=== PATIENT | male | born 1970 | race Caucasian/White ===

== ENCOUNTER 2016-06-17 20:19 | Emergency (ER) | payer OTHER ==
[~2016-06-17] VITALS: Ht 170.2 cm; Wt 78.0 kg
[2016-06-17 20:50] VITALS: BP 109/72
--- NOTE | 2016-06-17 21:37 | ED GENERAL ADULT ---
History of Present Illness General Chief Complaint: General Adult Stated Complaint: PER PT "I WANT TO BE CHECKED FOR THE FLU" Source: patient Exam Limitations: no limitations Vital Signs & Intake/Output Vital Signs & Intake/Output Vital Signs Date Time Temp Pulse Resp B/P Pulse O2 O2 Flow FiO2 Ox Delivery Rate 06/17 2049 98.0 92 18 109/72 97 Room Air Triage Note: FLU LIKE SYMPTOMS FEVER CHILLS BODY ACHES REQUESTING FLU MEDS Triage Nurses Notes Reviewed? yes Onset: Gradual Duration: hour(s): (5) Timing: remote history Injury Environment: home Severity: moderate No Modifying Factors: none HPI: Patient is a 45-year-old male presenting to the emergency Department chief complaint of body aches, frontal headache and fever up to 101 started this afternoon. He called his primary care physician who told him to come to the emergency department for evaluation to make sure he doesn't have the flu. Patient reports that he took Tylenol and Motrin today which seemed to have helped. Denies any nausea or vomiting. No abdominal pain. Denies sick contacts or recent travel. (SHERLY SILVER) Past History Travel History Traveled to [place] past 21 day No Medical History Any Pertinent Medical History? see below for history Surgical History Surgical History: non-contributory Family History Hx Contributory? No (SHERLY SILVER) Review of Systems Review of Systems Constitutional: Reports: fever. Comments Review of systems: See HPI, All other systems negative. Constitutional, no weight loss HEENT: No visual changes no sore throat no congestion Cardiovascular: No chest pain ,palpitation , orthopnea or ankle swelling Skin, no jaundice no rashes Respiratory: No dyspnea cough sputum or hemoptysis GI: No nausea no vomiting : No dysuria No hematuria Muscle skeletal: no back pain, no neck pain, Neurologic: No numbness no confusion Psych: No stress anxiety or depression,. Heme/endocrine: No bruising no bleeding no polyuria or polydipsia Immunology: No splenectomy or history of AIDS (SHERYL SILVER) Physical Exam Physical Exam General Appearance: well developed/nourished, no apparent distress, alert, awake , comfortable Comments: Well-developed well-nourished person in no acute distress HEENT: extraocular motion intact, no nystagmus. Pupils equally round and reactive to light and accommodation. Nose is atraumatic. External auditory canal and Tympanic membranes clear. Pharynx is mildly erythematous, no exudate, clearing secretions bilaterally. No tonsillar enlargement. No swelling or edema. Neck: Supple, no lymphadenopathy, normal range of motion without pain or tenderness Cardiovascular: Regular rate and rhythms no murmurs rubs or gallops, normal JVP Respiratory: Chest nontender. No respiratory distress.breath sounds clear to auscultation bilaterally Neuro: Alert oriented x3 Skin: No appreciable rash on exposed skin, skin is warm and dry. Psych: Mood and affect is normal, memory and judgment is normal. Core Measures ACS in differential dx? No CVA/TIA Diagnosis: No Severe Sepsis Present: No Septic Shock Present: No (SHERLY SILVER) Progress Differential Diagnoses I considered the following diagnoses in my evaluation of the patient: Viral syndrome, strep, upper respiratory infection, influenza Plan of Care: Orders Procedure Date/time Status RAPID VIRAL INFLUENZA A 06/17 2041 Complete Microbiology 06/17 2099 NASOPHARYN: Influenza Virus A & B Rapid Smear - COMP Initial ED EKG: none Comments: Negative influenza swab. Likely other viral process. Patient in no acute distress. Symptoms actually went with motion and Tylenol and fluids. PCP follow-up next week. (SHERLY SILVER) Departure Departure Time of Disposition: 2142 Disposition: HOME OR SELF CARE Condition: Stable Clinical Impression Primary Impression: Viral syndrome Referrals: AMANDA CANO MD (PCP/Family) Additional Instructions: FOLLOW UP WITH PCP CALL TO MAKE APPT. TAKE TYLENOL AND MOTRIN DIRECTED OVER THE COUNTER. INCREASE FLUIDS. Departure Forms: Customer Survey General Discharge Information (SHERLY SILVER) PA/MILITARY NURSE Co-Sign Statement Statement: ED Attending supervision documentation- [] I saw and evaluated the patient. I have also reviewed all the pertinent lab results and diagnostic results. I agree with the findings and the plan of care as documented in the PA's/MILITARY NURSE's documentation. [X]x I have reviewed the ED Record and agree with the PA's/MILITARY NURSE's documentation. [] Additions or exceptions (if any) to the PAs/MILITARY NURSE's note and plan are summarized below: [] (ESTIVEN AKERS,DEQUAN Peralta) Critical Care Note Critical Care Note Critical Care Time: non-applicable (SHERLY SILVER)
== END 2016-06-17 22:06 ==
LOC: ERH 20:19
DX: B34.9 Viral infection, unspecified (principal)
CPT/HCPCS: 87804; 87804-59